=== PATIENT | male | born 1935 ===

== ENCOUNTER 2022-01-20 08:58 | Inpatient (IN) ==
[2022-01-20] MEDS ORDERED: predniSONE 10 MG TABLET PO SCH (21:00)
[2022-01-21 05:01] LABS: Basophils # 0.1 K/mcL (0.0-0.2); Basophils % 0.7 %; Eosinophils # 0.1 K/mcL (0.0-0.6); Eosinophils % 1.1 %; Hematocrit 42.2 % (37.5-50.1); Hemoglobin 14.3 g/dL (12.9-16.9); Immature Granulocytes % 0.8 % (0-4); Lymphocytes # 2.9 K/mcL (0.6-4.6); Mean Corpuscular HGB Conc 33.9 g/dL (31.6-35.5); Mean Corpuscular Hemoglobin 31.4 pg (28.0-33.3); Mean Corpuscular Volume 92.5 fL (83.0-100.0); Mean Platelet Volume 10.6 fL (9.4-12.4); Monocytes # 1.4 K/mcL (0.0-1.3); Monocytes % 11.3 %; Platelet Count 207 K/mcL (140-400); Red Blood Count 4.56 M/mcL (4.19-5.50); Red Cell Distribution Width 12.7 % (11.5-14.5); Segmented Neutrophils % 63.1 %; White Blood Count 12.7 K/mcL (4.3-11.1)
[2022-01-21 05:18] LABS: BUN/Creatinine Ratio 30 (6-26); Blood Urea Nitrogen 28 mg/dL (8-23); Calcium 8.5 mg/dL (8.6-10.3); Carbon Dioxide 27 mEq/L (23-29); Chloride 107 mEq/L (98-107); Glucose 83 mg/dL (70-105); Osmolality,Calculated 297 (280-300); Potassium 3.6 mEq/L (3.5-5.1); Sodium 141 mEq/L (136-145); eGFR For African Americans > 60 (> 60); eGFR For Non-African Americans > 60 (> 60)
[2022-01-21] MEDS: *HR* Enoxaparin 40 MG/0.4 ML SYRINGE SQ SCH (05:37)
[2022-01-21] MEDS: Budesonide/Formoterol 80/4.5 1 PUFF INH IH SCH ×2 (08:50→21:11)
[2022-01-21] MEDS: lisinopriL 5 MG TABLET PO SCH (08:51)
[2022-01-21] MEDS: carvediloL 6.25 MG TABLET PO SCH (08:51)
[2022-01-21] MEDS: Loratadine/Pseudophed (12 HR) 1 EACH TABLET PO SCH (08:52)
[2022-01-21] MEDS: Isosorbide MONOnitrate (24 HR) 30 MG TAB.ER.24H PO SCH (08:52)
[2022-01-21] MEDS: Aspirin Enteric Coated 81 MG Tablet PO SCH (08:52)
[2022-01-21] MEDS: Cefdinir 300 MG CAPSULE PO SCH ×2 (08:52→19:46)
[2022-01-21] MEDS: Finasteride 5 MG TABLET PO SCH (08:52)
[2022-01-21] MEDS ORDERED: ESOMEPRAZOLE MAGNESIUM 20 MG PO SCH (09:00)
[2022-01-21] MEDS: Melatonin 3 MG TABLET PO SCH (21:38)
[2022-01-22] MEDS: *HR* Enoxaparin 40 MG/0.4 ML SYRINGE SQ SCH (04:56)
[2022-01-22] MEDS: Budesonide/Formoterol 80/4.5 1 PUFF INH IH SCH ×2 (08:16→19:48)
[2022-01-22] MEDS: Finasteride 5 MG TABLET PO SCH (10:44)
[2022-01-22] MEDS: Loratadine/Pseudophed (12 HR) 1 EACH TABLET PO SCH (10:44)
[2022-01-22] MEDS: Aspirin Enteric Coated 81 MG Tablet PO SCH (10:44)
[2022-01-22] MEDS: lisinopriL 5 MG TABLET PO SCH (10:45)
[2022-01-22] MEDS: Cefdinir 300 MG CAPSULE PO SCH ×2 (10:45→20:20)
[2022-01-22] MEDS: carvediloL 6.25 MG TABLET PO SCH (10:48)
[2022-01-22] MEDS: Isosorbide MONOnitrate (24 HR) 30 MG TAB.ER.24H PO SCH (10:48)
[2022-01-22] MEDS: Melatonin 3 MG TABLET PO SCH (20:20)
[2022-01-22] MEDS: Acetaminophen 325 MG TABLET PO PRN (20:20)
[2022-01-23] MEDS: *HR* Enoxaparin 40 MG/0.4 ML SYRINGE SQ SCH (05:44)
[2022-01-23] MEDS: Budesonide/Formoterol 80/4.5 1 PUFF INH IH SCH ×2 (07:43→18:55)
[2022-01-23] MEDS: Finasteride 5 MG TABLET PO SCH (07:44)
[2022-01-23] MEDS: lisinopriL 5 MG TABLET PO SCH (07:45)
[2022-01-23] MEDS: Loratadine/Pseudophed (12 HR) 1 EACH TABLET PO SCH (07:45)
[2022-01-23] MEDS: Aspirin Enteric Coated 81 MG Tablet PO SCH (07:45)
[2022-01-23] MEDS: carvediloL 6.25 MG TABLET PO SCH (07:45)
[2022-01-23] MEDS: Isosorbide MONOnitrate (24 HR) 30 MG TAB.ER.24H PO SCH (07:45)
[2022-01-23] MEDS: Cefdinir 300 MG CAPSULE PO SCH ×2 (07:46→20:02)
[2022-01-23] MEDS: Melatonin 3 MG TABLET PO SCH (20:02)
[2022-01-24 04:54] LABS: Hematocrit 40.9 % (37.5-50.1); Hemoglobin 13.9 g/dL (12.9-16.9); Mean Corpuscular Hemoglobin 31.7 pg (28.0-33.3); Mean Corpuscular Volume 93.4 fL (83.0-100.0); Mean Platelet Volume 10.7 fL (9.4-12.4); Platelet Count 195 K/mcL (140-400); Red Blood Count 4.38 M/mcL (4.19-5.50); Red Cell Distribution Width 12.7 % (11.5-14.5); White Blood Count 10.3 K/mcL (4.3-11.1)
[2022-01-24 05:12] LABS: Alanine Aminotransferase 27 Units/L (7-52); Albumin 3.5 g/dL (3.5-5.7); Albumin/Globulin Ratio 1.8 (1.1-2.2); Alkaline Phosphatase 52 Units/L (34-104); Aspartate Amino Transferase 19 Units/L (13-39); BUN/Creatinine Ratio 39 (6-26); Bilirubin,Total 0.7 mg/dL (0.3-1.0); Blood Urea Nitrogen 29 mg/dL (8-23); Calcium 8.5 mg/dL (8.6-10.3); Carbon Dioxide 27 mEq/L (23-29); Chloride 109 mEq/L (98-107); Globulin 1.9 g/dL (2.4-3.5); Glucose 95 mg/dL (70-105); Magnesium 2.1 mg/dL (1.6-2.6); Osmolality,Calculated 296 (280-300); Potassium 4.3 mEq/L (3.5-5.1); Sodium 140 mEq/L (136-145); Total Protein 5.4 g/dL (6.4-8.9); eGFR For African Americans > 60 (> 60); eGFR For Non-African Americans > 60 (> 60)
[2022-01-24] MEDS: *HR* Enoxaparin 40 MG/0.4 ML SYRINGE SQ SCH (05:54)
[2022-01-24] MEDS: carvediloL 6.25 MG TABLET PO SCH (07:45)
[2022-01-24] MEDS: Isosorbide MONOnitrate (24 HR) 30 MG TAB.ER.24H PO SCH (07:45)
[2022-01-24] MEDS: Loratadine/Pseudophed (12 HR) 1 EACH TABLET PO SCH (07:45)
[2022-01-24] MEDS: Aspirin Enteric Coated 81 MG Tablet PO SCH (07:46)
[2022-01-24] MEDS: Cefdinir 300 MG CAPSULE PO SCH ×2 (07:46→20:08)
[2022-01-24] MEDS: lisinopriL 5 MG TABLET PO SCH (07:46)
[2022-01-24] MEDS: Finasteride 5 MG TABLET PO SCH (07:46)
[2022-01-24] MEDS: Budesonide/Formoterol 80/4.5 1 PUFF INH IH SCH ×2 (11:10→18:49)
[2022-01-24] MEDS: Melatonin 3 MG TABLET PO SCH (20:08)
[2022-01-25] MEDS: *HR* Enoxaparin 40 MG/0.4 ML SYRINGE SQ SCH (05:18)
[2022-01-25] MEDS: Budesonide/Formoterol 80/4.5 1 PUFF INH IH SCH ×2 (08:07→19:53)
[2022-01-25] MEDS: Aspirin Enteric Coated 81 MG Tablet PO SCH (08:36)
[2022-01-25] MEDS: Loratadine/Pseudophed (12 HR) 1 EACH TABLET PO SCH (08:37)
[2022-01-25] MEDS: carvediloL 6.25 MG TABLET PO SCH (08:37)
[2022-01-25] MEDS: Finasteride 5 MG TABLET PO SCH (08:38)
[2022-01-25] MEDS: Isosorbide MONOnitrate (24 HR) 30 MG TAB.ER.24H PO SCH (08:38)
[2022-01-25] MEDS: lisinopriL 5 MG TABLET PO SCH (08:38)
[2022-01-25] MEDS: Melatonin 3 MG TABLET PO SCH (21:56)
[2022-01-26] MEDS: *HR* Enoxaparin 40 MG/0.4 ML SYRINGE SQ SCH (06:22)
[2022-01-26] MEDS: Budesonide/Formoterol 80/4.5 1 PUFF INH IH SCH ×2 (07:32→21:48)
[2022-01-26] MEDS: Loratadine/Pseudophed (12 HR) 1 EACH TABLET PO SCH (08:08)
[2022-01-26] MEDS: Aspirin Enteric Coated 81 MG Tablet PO SCH (08:08)
[2022-01-26] MEDS: carvediloL 6.25 MG TABLET PO SCH (08:09)
[2022-01-26] MEDS: Finasteride 5 MG TABLET PO SCH (08:09)
[2022-01-26] MEDS: Isosorbide MONOnitrate (24 HR) 30 MG TAB.ER.24H PO SCH (08:09)
[2022-01-26] MEDS: lisinopriL 5 MG TABLET PO SCH (08:10)
[2022-01-26] MEDS: polyethylene glycoL 3350 17 GM POWD.PACK PO SCH (13:37)
[2022-01-26] MEDS: Melatonin 3 MG TABLET PO SCH (21:15)
[2022-01-27] MEDS: *HR* Enoxaparin 40 MG/0.4 ML SYRINGE SQ SCH (04:58)
[2022-01-27] MEDS: Budesonide/Formoterol 80/4.5 1 PUFF INH IH SCH ×2 (06:49→20:14)
[2022-01-27] MEDS: Loratadine/Pseudophed (12 HR) 1 EACH TABLET PO SCH (08:05)
[2022-01-27] MEDS: polyethylene glycoL 3350 17 GM POWD.PACK PO SCH (08:05)
[2022-01-27] MEDS: Aspirin Enteric Coated 81 MG Tablet PO SCH (08:05)
[2022-01-27] MEDS: carvediloL 6.25 MG TABLET PO SCH (08:05)
[2022-01-27] MEDS: Isosorbide MONOnitrate (24 HR) 30 MG TAB.ER.24H PO SCH (08:06)
[2022-01-27] MEDS: Finasteride 5 MG TABLET PO SCH (08:06)
[2022-01-27] MEDS: lisinopriL 5 MG TABLET PO SCH (09:29)
[2022-01-27] MEDS: Melatonin 3 MG TABLET PO SCH (21:03)
[2022-01-27] MEDS: Acetaminophen 325 MG TABLET PO PRN (21:03)
[2022-01-28] MEDS: *HR* Enoxaparin 40 MG/0.4 ML SYRINGE SQ SCH (06:05)
[2022-01-28] MEDS: carvediloL 6.25 MG TABLET PO SCH (08:59)
[2022-01-28] MEDS: Finasteride 5 MG TABLET PO SCH (08:59)
[2022-01-28] MEDS: Aspirin Enteric Coated 81 MG Tablet PO SCH (08:59)
[2022-01-28] MEDS: polyethylene glycoL 3350 17 GM POWD.PACK PO SCH (08:59)
[2022-01-28] MEDS: lisinopriL 5 MG TABLET PO SCH (08:59)
[2022-01-28] MEDS: Loratadine/Pseudophed (12 HR) 1 EACH TABLET PO SCH (08:59)
[2022-01-28] MEDS: Isosorbide MONOnitrate (24 HR) 30 MG TAB.ER.24H PO SCH (08:59)
[2022-01-28] MEDS: Budesonide/Formoterol 80/4.5 1 PUFF INH IH SCH ×2 (09:09→18:27)
[2022-01-28] MEDS: Melatonin 3 MG TABLET PO SCH (21:00)
[2022-01-29] MEDS: *HR* Enoxaparin 40 MG/0.4 ML SYRINGE SQ SCH (05:21)
[2022-01-29 05:52] LABS: Hematocrit 39.2 % (37.5-50.1); Hemoglobin 13.2 g/dL (12.9-16.9); Mean Corpuscular HGB Conc 33.7 g/dL (31.6-35.5); Mean Corpuscular Hemoglobin 31.3 pg (28.0-33.3); Mean Corpuscular Volume 92.9 fL (83.0-100.0); Mean Platelet Volume 10.1 fL (9.4-12.4); Platelet Count 217 K/mcL (140-400); Red Blood Count 4.22 M/mcL (4.19-5.50); Red Cell Distribution Width 12.3 % (11.5-14.5); White Blood Count 9.1 K/mcL (4.3-11.1)
[2022-01-29 06:10] LABS: Alanine Aminotransferase 24 Units/L (7-52); Albumin 3.5 g/dL (3.5-5.7); Albumin/Globulin Ratio 2.1 (1.1-2.2); Alkaline Phosphatase 61 Units/L (34-104); Aspartate Amino Transferase 18 Units/L (13-39); BUN/Creatinine Ratio 30 (6-26); Bilirubin,Total 0.8 mg/dL (0.3-1.0); Blood Urea Nitrogen 25 mg/dL (8-23); Calcium 8.7 mg/dL (8.6-10.3); Carbon Dioxide 27 mEq/L (23-29); Chloride 106 mEq/L (98-107); Globulin 1.7 g/dL (2.4-3.5); Glucose 98 mg/dL (70-105); Osmolality,Calculated 292 (280-300); Sodium 139 mEq/L (136-145); Total Protein 5.2 g/dL (6.4-8.9); eGFR For African Americans > 60 (> 60); eGFR For Non-African Americans > 60 (> 60)
[2022-01-29] MEDS: carvediloL 6.25 MG TABLET PO SCH (07:49)
[2022-01-29] MEDS: Isosorbide MONOnitrate (24 HR) 30 MG TAB.ER.24H PO SCH (07:49)
[2022-01-29] MEDS: polyethylene glycoL 3350 17 GM POWD.PACK PO SCH (07:49)
[2022-01-29] MEDS: Aspirin Enteric Coated 81 MG Tablet PO SCH (07:49)
[2022-01-29] MEDS: Finasteride 5 MG TABLET PO SCH (07:49)
[2022-01-29] MEDS: Loratadine/Pseudophed (12 HR) 1 EACH TABLET PO SCH (07:49)
[2022-01-29] MEDS: lisinopriL 5 MG TABLET PO SCH (07:49)
[2022-01-29] MEDS: Budesonide/Formoterol 80/4.5 1 PUFF INH IH SCH ×2 (10:23→20:58)
[2022-01-29] MEDS ORDERED: hydrALAZINE 25 MG TABLET PO ONE ×2 (21:26→23:19)
[2022-01-29] MEDS: Melatonin 3 MG TABLET PO SCH (21:36)
[2022-01-29] MEDS ORDERED: *HR* Labetalol 20 MG/4 ML SYRINGE IVP ONE (23:08)
[2022-01-30] MEDS: *HR* Enoxaparin 40 MG/0.4 ML SYRINGE SQ SCH (06:26)
[2022-01-30] MEDS: Finasteride 5 MG TABLET PO SCH (08:38)
[2022-01-30] MEDS: Loratadine/Pseudophed (12 HR) 1 EACH TABLET PO SCH (08:38)
[2022-01-30] MEDS: Isosorbide MONOnitrate (24 HR) 30 MG TAB.ER.24H PO SCH (08:38)
[2022-01-30] MEDS: Aspirin Enteric Coated 81 MG Tablet PO SCH (08:38)
[2022-01-30] MEDS: carvediloL 6.25 MG TABLET PO SCH (08:39)
[2022-01-30] MEDS: polyethylene glycoL 3350 17 GM POWD.PACK PO SCH (08:39)
[2022-01-30] MEDS ORDERED: lisinopriL 5 MG TABLET PO SCH (09:00)
[2022-01-30] MEDS ORDERED: amLODIPine 5 MG TABLET PO SCH (10:00)
[2022-01-30] MEDS: Budesonide/Formoterol 80/4.5 1 PUFF INH IH SCH ×2 (10:29→20:49)
[2022-01-30] MEDS ORDERED: Neosporin OINT 1 APPL PACKET TP ONE (14:26)
[2022-01-30] MEDS: tiZANidine 4 MG TABLET PO PRN (17:01)
[2022-01-30] MEDS: Acetaminophen 325 MG TABLET PO PRN (20:01)
[2022-01-30] MEDS: Doxycycline 100 MG CAPSULE PO SCH (20:02)
[2022-01-30] MEDS: Melatonin 3 MG TABLET PO SCH (20:02)
[2022-01-31] MEDS: tiZANidine 4 MG TABLET PO PRN ×2 (05:57→18:17)
[2022-01-31] MEDS: *HR* Enoxaparin 40 MG/0.4 ML SYRINGE SQ SCH (05:57)
[2022-01-31] MEDS: hydrALAZINE 10 MG TABLET PO PRN (06:34)
[2022-01-31] MEDS: Budesonide/Formoterol 80/4.5 1 PUFF INH IH SCH ×2 (07:16→19:16)
[2022-01-31] MEDS: carvediloL 6.25 MG TABLET PO SCH (09:27)
[2022-01-31] MEDS: Doxycycline 100 MG CAPSULE PO SCH ×2 (09:27→19:58)
[2022-01-31] MEDS: Isosorbide MONOnitrate (24 HR) 30 MG TAB.ER.24H PO SCH (09:27)
[2022-01-31] MEDS: lisinopriL 20 MG TABLET PO SCH (09:28)
[2022-01-31] MEDS: Finasteride 5 MG TABLET PO SCH (09:28)
[2022-01-31] MEDS: Aspirin Enteric Coated 81 MG Tablet PO SCH (09:28)
[2022-01-31] MEDS: Loratadine/Pseudophed (12 HR) 1 EACH TABLET PO SCH (09:28)
[2022-01-31] MEDS: polyethylene glycoL 3350 17 GM POWD.PACK PO SCH (09:29)
[2022-01-31] MEDS: amLODIPine 5 MG TABLET PO SCH (15:41)
[2022-01-31] MEDS: Acetaminophen 325 MG TABLET PO PRN (19:58)
[2022-01-31] MEDS: Melatonin 3 MG TABLET PO SCH (19:58)
[2022-02-01] MEDS: Acetaminophen 325 MG TABLET PO PRN (05:28)
[2022-02-01] MEDS: tiZANidine 4 MG TABLET PO PRN ×3 (05:28→23:45)
[2022-02-01] MEDS: *HR* Enoxaparin 40 MG/0.4 ML SYRINGE SQ SCH (05:28)
[2022-02-01] MEDS: Aspirin Enteric Coated 81 MG Tablet PO SCH (08:24)
[2022-02-01] MEDS: amLODIPine 5 MG TABLET PO SCH (08:24)
[2022-02-01] MEDS: lisinopriL 20 MG TABLET PO SCH (08:24)
[2022-02-01] MEDS: Doxycycline 100 MG CAPSULE PO SCH ×2 (08:25→20:00)
[2022-02-01] MEDS: Finasteride 5 MG TABLET PO SCH (08:25)
[2022-02-01] MEDS: Loratadine/Pseudophed (12 HR) 1 EACH TABLET PO SCH (08:25)
[2022-02-01] MEDS: carvediloL 6.25 MG TABLET PO SCH (08:25)
[2022-02-01] MEDS: Isosorbide MONOnitrate (24 HR) 30 MG TAB.ER.24H PO SCH (08:25)
[2022-02-01] MEDS: polyethylene glycoL 3350 17 GM POWD.PACK PO SCH (08:26)
[2022-02-01] MEDS: Budesonide/Formoterol 80/4.5 1 PUFF INH IH SCH ×2 (10:26→20:02)
[2022-02-01] MEDS: hydrALAZINE 10 MG TABLET PO PRN (16:36)
[2022-02-01] MEDS: Melatonin 3 MG TABLET PO SCH (20:00)
[2022-02-02] MEDS: *HR* Enoxaparin 40 MG/0.4 ML SYRINGE SQ SCH (05:47)
[2022-02-02] MEDS: Loratadine/Pseudophed (12 HR) 1 EACH TABLET PO SCH (08:21)
[2022-02-02] MEDS: Aspirin Enteric Coated 81 MG Tablet PO SCH (08:21)
[2022-02-02] MEDS: lisinopriL 20 MG TABLET PO SCH (08:21)
[2022-02-02] MEDS: Doxycycline 100 MG CAPSULE PO SCH ×2 (08:21→20:59)
[2022-02-02] MEDS: carvediloL 6.25 MG TABLET PO SCH (08:21)
[2022-02-02] MEDS: amLODIPine 5 MG TABLET PO SCH (08:21)
[2022-02-02] MEDS: Finasteride 5 MG TABLET PO SCH (08:22)
[2022-02-02] MEDS: Isosorbide MONOnitrate (24 HR) 30 MG TAB.ER.24H PO SCH (08:22)
[2022-02-02] MEDS: polyethylene glycoL 3350 17 GM POWD.PACK PO SCH (08:53)
[2022-02-02] MEDS: Budesonide/Formoterol 80/4.5 1 PUFF INH IH SCH ×2 (10:32→20:13)
[2022-02-02] MEDS: tiZANidine 4 MG TABLET PO PRN (20:59)
[2022-02-02] MEDS: hydrALAZINE 10 MG TABLET PO PRN (20:59)
[2022-02-02] MEDS: Melatonin 3 MG TABLET PO SCH (20:59)
[2022-02-03] MEDS: Acetaminophen 325 MG TABLET PO PRN ×2 (02:24→20:30)
[2022-02-03 04:59] LABS: Hematocrit 38.3 % (37.5-50.1); Hemoglobin 13.1 g/dL (12.9-16.9); Mean Corpuscular HGB Conc 34.2 g/dL (31.6-35.5); Mean Corpuscular Hemoglobin 31.4 pg (28.0-33.3); Mean Corpuscular Volume 91.8 fL (83.0-100.0); Mean Platelet Volume 10.1 fL (9.4-12.4); Platelet Count 213 K/mcL (140-400); Red Blood Count 4.17 M/mcL (4.19-5.50); Red Cell Distribution Width 12.2 % (11.5-14.5); White Blood Count 9.4 K/mcL (4.3-11.1)
[2022-02-03 05:20] LABS: Alanine Aminotransferase 27 Units/L (7-52); Albumin 3.5 g/dL (3.5-5.7); Albumin/Globulin Ratio 2.2 (1.1-2.2); Alkaline Phosphatase 60 Units/L (34-104); Aspartate Amino Transferase 19 Units/L (13-39); BUN/Creatinine Ratio 26 (6-26); Bilirubin,Total 0.5 mg/dL (0.3-1.0); Blood Urea Nitrogen 18 mg/dL (8-23); Calcium 8.4 mg/dL (8.6-10.3); Carbon Dioxide 26 mEq/L (23-29); Chloride 108 mEq/L (98-107); Globulin 1.6 g/dL (2.4-3.5); Glucose 93 mg/dL (70-105); Magnesium 1.9 mg/dL (1.6-2.6); Osmolality,Calculated 294 (280-300); Potassium 3.7 mEq/L (3.5-5.1); Sodium 141 mEq/L (136-145); Total Protein 5.1 g/dL (6.4-8.9); eGFR For African Americans > 60 (> 60); eGFR For Non-African Americans > 60 (> 60)
[2022-02-03] MEDS: *HR* Enoxaparin 40 MG/0.4 ML SYRINGE SQ SCH (05:42)
[2022-02-03] MEDS: Isosorbide MONOnitrate (24 HR) 30 MG TAB.ER.24H PO SCH (08:37)
[2022-02-03] MEDS: Loratadine/Pseudophed (12 HR) 1 EACH TABLET PO SCH (08:37)
[2022-02-03] MEDS: hydrALAZINE 10 MG TABLET PO PRN (08:37)
[2022-02-03] MEDS: lisinopriL 20 MG TABLET PO SCH (08:37)
[2022-02-03] MEDS: Aspirin Enteric Coated 81 MG Tablet PO SCH (08:38)
[2022-02-03] MEDS: Doxycycline 100 MG CAPSULE PO SCH ×2 (08:38→20:30)
[2022-02-03] MEDS: Finasteride 5 MG TABLET PO SCH (08:38)
[2022-02-03] MEDS: carvediloL 6.25 MG TABLET PO SCH (08:39)
[2022-02-03] MEDS: amLODIPine 5 MG TABLET PO SCH (08:39)
[2022-02-03] MEDS: polyethylene glycoL 3350 17 GM POWD.PACK PO SCH (08:39)
[2022-02-03] MEDS: Budesonide/Formoterol 80/4.5 1 PUFF INH IH SCH ×2 (10:22→21:42)
[2022-02-03] MEDS: tiZANidine 4 MG TABLET PO PRN (20:30)
[2022-02-03] MEDS: Melatonin 3 MG TABLET PO SCH (20:30)
[2022-02-04] MEDS ORDERED: Gabapentin 300 MG CAPSULE PO ONE (04:03)
[2022-02-04] MEDS: *HR* Enoxaparin 40 MG/0.4 ML SYRINGE SQ SCH (04:16)
[2022-02-04] MEDS: carvediloL 6.25 MG TABLET PO SCH (08:36)
[2022-02-04] MEDS: Aspirin Enteric Coated 81 MG Tablet PO SCH (08:37)
[2022-02-04] MEDS: Loratadine/Pseudophed (12 HR) 1 EACH TABLET PO SCH (08:37)
[2022-02-04] MEDS: amLODIPine 5 MG TABLET PO SCH (08:37)
[2022-02-04] MEDS: Doxycycline 100 MG CAPSULE PO SCH ×2 (08:37→19:51)
[2022-02-04] MEDS: Isosorbide MONOnitrate (24 HR) 30 MG TAB.ER.24H PO SCH (08:38)
[2022-02-04] MEDS: lisinopriL 20 MG TABLET PO SCH (08:38)
[2022-02-04] MEDS: Finasteride 5 MG TABLET PO SCH (08:38)
[2022-02-04] MEDS: polyethylene glycoL 3350 17 GM POWD.PACK PO SCH ×2 (08:38→09:00)
[2022-02-04] MEDS: Budesonide/Formoterol 80/4.5 1 PUFF INH IH SCH ×2 (09:33→21:29)
[2022-02-04] MEDS: hydrALAZINE 10 MG TABLET PO PRN (19:51)
[2022-02-04] MEDS: Melatonin 3 MG TABLET PO SCH (19:51)
[2022-02-05] MEDS: tiZANidine 4 MG TABLET PO PRN ×2 (02:27→19:57)
[2022-02-05] MEDS: *HR* Enoxaparin 40 MG/0.4 ML SYRINGE SQ SCH (05:50)
[2022-02-05] MEDS: Budesonide/Formoterol 80/4.5 1 PUFF INH IH SCH ×2 (07:21→20:44)
[2022-02-05] MEDS: Aspirin Enteric Coated 81 MG Tablet PO SCH (08:37)
[2022-02-05] MEDS: Isosorbide MONOnitrate (24 HR) 30 MG TAB.ER.24H PO SCH (08:37)
[2022-02-05] MEDS: Doxycycline 100 MG CAPSULE PO SCH ×2 (08:37→19:55)
[2022-02-05] MEDS: lisinopriL 20 MG TABLET PO SCH (08:37)
[2022-02-05] MEDS: Finasteride 5 MG TABLET PO SCH (08:37)
[2022-02-05] MEDS: Loratadine/Pseudophed (12 HR) 1 EACH TABLET PO SCH (08:37)
[2022-02-05] MEDS: carvediloL 6.25 MG TABLET PO SCH (08:38)
[2022-02-05] MEDS: amLODIPine 5 MG TABLET PO SCH (08:38)
[2022-02-05] MEDS: polyethylene glycoL 3350 17 GM POWD.PACK PO SCH (08:39)
[2022-02-05] MEDS: Melatonin 3 MG TABLET PO SCH (19:55)
[2022-02-06 05:52] LABS: Basophils # 0.1 K/mcL (0.0-0.2); Basophils % 1.2 %; Eosinophils % 8.3 %; Hematocrit 42.3 % (37.5-50.1); Hemoglobin 14.3 g/dL (12.9-16.9); Immature Granulocytes % 0.4 % (0-4); Lymphocytes % 16.6 %; Mean Corpuscular HGB Conc 33.8 g/dL (31.6-35.5); Mean Corpuscular Hemoglobin 31.6 pg (28.0-33.3); Mean Corpuscular Volume 93.6 fL (83.0-100.0); Mean Platelet Volume 10.2 fL (9.4-12.4); Monocytes % 10.5 %; Neutrophils # 7.5 K/mcL (1.6-8.9); Platelet Count 211 K/mcL (140-400); Red Blood Count 4.52 M/mcL (4.19-5.50); Red Cell Distribution Width 12.3 % (11.5-14.5); White Blood Count 11.9 K/mcL (4.3-11.1)
[2022-02-06 05:56] LABS: Monocytes # 1.3 K/mcL (0.0-1.3)
[2022-02-06] MEDS: *HR* Enoxaparin 40 MG/0.4 ML SYRINGE SQ SCH (05:58)
[2022-02-06 06:12] LABS: BUN/Creatinine Ratio 24 (6-26); Blood Urea Nitrogen 20 mg/dL (8-23); Calcium 9.1 mg/dL (8.6-10.3); Carbon Dioxide 31 mEq/L (23-29); Chloride 104 mEq/L (98-107); Glucose 90 mg/dL (70-105); Osmolality,Calculated 294 (280-300); Potassium 3.9 mEq/L (3.5-5.1); Sodium 141 mEq/L (136-145); eGFR For African Americans > 60 (> 60); eGFR For Non-African Americans > 60 (> 60)
[2022-02-06] MEDS: Budesonide/Formoterol 80/4.5 1 PUFF INH IH SCH ×2 (07:23→19:40)
[2022-02-06] MEDS: Isosorbide MONOnitrate (24 HR) 30 MG TAB.ER.24H PO SCH (08:37)
[2022-02-06] MEDS: lisinopriL 20 MG TABLET PO SCH (08:37)
[2022-02-06] MEDS: Doxycycline 100 MG CAPSULE PO SCH ×2 (08:37→20:14)
[2022-02-06] MEDS: Loratadine/Pseudophed (12 HR) 1 EACH TABLET PO SCH (08:37)
[2022-02-06] MEDS: Aspirin Enteric Coated 81 MG Tablet PO SCH (08:38)
[2022-02-06] MEDS: polyethylene glycoL 3350 17 GM POWD.PACK PO SCH (08:38)
[2022-02-06] MEDS: carvediloL 6.25 MG TABLET PO SCH (08:38)
[2022-02-06] MEDS: amLODIPine 5 MG TABLET PO SCH (08:38)
[2022-02-06] MEDS: Finasteride 5 MG TABLET PO SCH (08:38)
[2022-02-06] MEDS ORDERED: amLODIPine 5 MG TABLET PO ONE (09:50)
[2022-02-06] MEDS: hydrALAZINE 10 MG TABLET PO PRN (20:14)
[2022-02-06] MEDS: Melatonin 3 MG TABLET PO SCH (20:14)
[2022-02-06] MEDS: tiZANidine 4 MG TABLET PO PRN (23:26)
[2022-02-07] MEDS: *HR* Enoxaparin 40 MG/0.4 ML SYRINGE SQ SCH (05:28)
[2022-02-07] MEDS: lisinopriL 20 MG TABLET PO SCH (08:02)
[2022-02-07] MEDS: Loratadine/Pseudophed (12 HR) 1 EACH TABLET PO SCH (08:02)
[2022-02-07] MEDS: Aspirin Enteric Coated 81 MG Tablet PO SCH (08:03)
[2022-02-07] MEDS: Finasteride 5 MG TABLET PO SCH (08:03)
[2022-02-07] MEDS: Isosorbide MONOnitrate (24 HR) 30 MG TAB.ER.24H PO SCH (08:03)
[2022-02-07] MEDS: carvediloL 6.25 MG TABLET PO SCH (08:03)
[2022-02-07] MEDS: polyethylene glycoL 3350 17 GM POWD.PACK PO SCH (08:04)
[2022-02-07] MEDS: amLODIPine 5 MG TABLET PO SCH (08:05)
[2022-02-07] MEDS: Budesonide/Formoterol 80/4.5 1 PUFF INH IH SCH ×2 (10:24→19:29)
[2022-02-07] MEDS: hydrALAZINE 10 MG TABLET PO PRN (20:45)
[2022-02-07] MEDS: Melatonin 3 MG TABLET PO SCH (20:45)
[2022-02-08] MEDS: *HR* Enoxaparin 40 MG/0.4 ML SYRINGE SQ SCH (05:34)
[2022-02-08] MEDS: hydrALAZINE 10 MG TABLET PO PRN ×2 (06:04→19:27)
[2022-02-08] MEDS: Budesonide/Formoterol 80/4.5 1 PUFF INH IH SCH ×2 (07:10→21:47)
[2022-02-08] MEDS: Aspirin Enteric Coated 81 MG Tablet PO SCH (07:55)
[2022-02-08] MEDS: Loratadine/Pseudophed (12 HR) 1 EACH TABLET PO SCH (07:55)
[2022-02-08] MEDS: amLODIPine 5 MG TABLET PO SCH (07:55)
[2022-02-08] MEDS: Isosorbide MONOnitrate (24 HR) 30 MG TAB.ER.24H PO SCH (07:55)
[2022-02-08] MEDS: polyethylene glycoL 3350 17 GM POWD.PACK PO SCH (07:55)
[2022-02-08] MEDS: Finasteride 5 MG TABLET PO SCH (07:55)
[2022-02-08] MEDS: tiZANidine 4 MG TABLET PO PRN (07:55)
[2022-02-08] MEDS: carvediloL 6.25 MG TABLET PO SCH (07:56)
[2022-02-08] MEDS: lisinopriL 20 MG TABLET PO SCH (07:56)
[2022-02-08] MEDS: Acetaminophen 325 MG TABLET PO PRN (13:26)
[2022-02-08] MEDS: Melatonin 3 MG TABLET PO SCH (20:55)
[2022-02-09] MEDS: *HR* Enoxaparin 40 MG/0.4 ML SYRINGE SQ SCH (04:46)
[2022-02-09] MEDS: Budesonide/Formoterol 80/4.5 1 PUFF INH IH SCH ×2 (07:24→21:18)
[2022-02-09] MEDS: amLODIPine 5 MG TABLET PO SCH (08:58)
[2022-02-09] MEDS: Aspirin Enteric Coated 81 MG Tablet PO SCH (08:58)
[2022-02-09] MEDS: hydrALAZINE 10 MG TABLET PO PRN (08:58)
[2022-02-09] MEDS: Finasteride 5 MG TABLET PO SCH (08:58)
[2022-02-09] MEDS: Loratadine/Pseudophed (12 HR) 1 EACH TABLET PO SCH (08:58)
[2022-02-09] MEDS: polyethylene glycoL 3350 17 GM POWD.PACK PO SCH (08:59)
[2022-02-09] MEDS: carvediloL 6.25 MG TABLET PO SCH (08:59)
[2022-02-09] MEDS: Isosorbide MONOnitrate (24 HR) 30 MG TAB.ER.24H PO SCH (08:59)
[2022-02-09] MEDS: lisinopriL 20 MG TABLET PO SCH (08:59)
[2022-02-09] MEDS: Melatonin 3 MG TABLET PO SCH (21:13)
[2022-02-09] MEDS: tiZANidine 4 MG TABLET PO PRN (21:13)
[2022-02-10] MEDS: tiZANidine 4 MG TABLET PO PRN ×2 (05:02→23:00)
[2022-02-10] MEDS: *HR* Enoxaparin 40 MG/0.4 ML SYRINGE SQ SCH (05:02)
[2022-02-10] MEDS: Budesonide/Formoterol 80/4.5 1 PUFF INH IH SCH ×2 (07:27→22:41)
[2022-02-10] MEDS: polyethylene glycoL 3350 17 GM POWD.PACK PO SCH (07:57)
[2022-02-10] MEDS: Isosorbide MONOnitrate (24 HR) 30 MG TAB.ER.24H PO SCH (07:57)
[2022-02-10] MEDS: amLODIPine 5 MG TABLET PO SCH (07:57)
[2022-02-10] MEDS: carvediloL 6.25 MG TABLET PO SCH (07:57)
[2022-02-10] MEDS: Loratadine/Pseudophed (12 HR) 1 EACH TABLET PO SCH (07:58)
[2022-02-10] MEDS: Finasteride 5 MG TABLET PO SCH (07:58)
[2022-02-10] MEDS: lisinopriL 20 MG TABLET PO SCH (07:58)
[2022-02-10] MEDS: Aspirin Enteric Coated 81 MG Tablet PO SCH (07:58)
[2022-02-10] MEDS: Melatonin 3 MG TABLET PO SCH (19:37)
[2022-02-10] MEDS: hydrALAZINE 10 MG TABLET PO PRN (19:37)
[2022-02-11 04:44] LABS: Basophils # 0.1 K/mcL (0.0-0.2); Eosinophils # 0.8 K/mcL (0.0-0.6); Eosinophils % 8.8 %; Hematocrit 38.1 % (37.5-50.1); Immature Granulocytes % 0.5 % (0-4); Lymphocytes # 1.9 K/mcL (0.6-4.6); Lymphocytes % 20.9 %; Mean Corpuscular HGB Conc 33.1 g/dL (31.6-35.5); Mean Corpuscular Volume 93.6 fL (83.0-100.0); Mean Platelet Volume 9.9 fL (9.4-12.4); Monocytes # 1.3 K/mcL (0.0-1.3); Monocytes % 14.4 %; Neutrophils # 4.8 K/mcL (1.6-8.9); Platelet Count 191 K/mcL (140-400); Red Blood Count 4.07 M/mcL (4.19-5.50); Segmented Neutrophils % 54.4 %; White Blood Count 8.9 K/mcL (4.3-11.1)
[2022-02-11] MEDS: *HR* Enoxaparin 40 MG/0.4 ML SYRINGE SQ SCH (04:46)
[2022-02-11 04:47] LABS: Hemoglobin 12.6 g/dL (12.9-16.9)
[2022-02-11 05:01] LABS: BUN/Creatinine Ratio 29 (6-26); Blood Urea Nitrogen 20 mg/dL (8-23); Calcium 8.5 mg/dL (8.6-10.3); Carbon Dioxide 29 mEq/L (23-29); Chloride 106 mEq/L (98-107); Glucose 98 mg/dL (70-105); Osmolality,Calculated 293 (280-300); Potassium 3.8 mEq/L (3.5-5.1); Sodium 140 mEq/L (136-145); eGFR For African Americans > 60 (> 60); eGFR For Non-African Americans > 60 (> 60)
[2022-02-11] MEDS: amLODIPine 5 MG TABLET PO SCH (08:18)
[2022-02-11] MEDS: carvediloL 6.25 MG TABLET PO SCH (08:19)
[2022-02-11] MEDS: Loratadine/Pseudophed (12 HR) 1 EACH TABLET PO SCH (08:19)
[2022-02-11] MEDS: Aspirin Enteric Coated 81 MG Tablet PO SCH (08:19)
[2022-02-11] MEDS: lisinopriL 20 MG TABLET PO SCH (08:19)
[2022-02-11] MEDS: Finasteride 5 MG TABLET PO SCH (08:19)
[2022-02-11] MEDS: polyethylene glycoL 3350 17 GM POWD.PACK PO SCH (08:20)
[2022-02-11] MEDS: Isosorbide MONOnitrate (24 HR) 30 MG TAB.ER.24H PO SCH (08:20)
[2022-02-11] MEDS: Budesonide/Formoterol 80/4.5 1 PUFF INH IH SCH ×2 (10:17→22:19)
[2022-02-11] MEDS: Melatonin 3 MG TABLET PO SCH (21:04)
[2022-02-11] MEDS: hydrALAZINE 10 MG TABLET PO PRN (21:04)
[2022-02-11] MEDS: tiZANidine 4 MG TABLET PO PRN (22:14)
[2022-02-12] MEDS: *HR* Enoxaparin 40 MG/0.4 ML SYRINGE SQ SCH (05:14)
[2022-02-12] MEDS: Loratadine/Pseudophed (12 HR) 1 EACH TABLET PO SCH (08:34)
[2022-02-12] MEDS: Aspirin Enteric Coated 81 MG Tablet PO SCH (08:34)
[2022-02-12] MEDS: amLODIPine 5 MG TABLET PO SCH (08:34)
[2022-02-12] MEDS: lisinopriL 20 MG TABLET PO SCH (08:34)
[2022-02-12] MEDS: Isosorbide MONOnitrate (24 HR) 30 MG TAB.ER.24H PO SCH (08:35)
[2022-02-12] MEDS: Finasteride 5 MG TABLET PO SCH (08:35)
[2022-02-12] MEDS: carvediloL 6.25 MG TABLET PO SCH (08:35)
[2022-02-12] MEDS: polyethylene glycoL 3350 17 GM POWD.PACK PO SCH (09:15)
[2022-02-12] MEDS: Budesonide/Formoterol 80/4.5 1 PUFF INH IH SCH ×2 (10:36→20:10)
[2022-02-12 10:45] LABS: Bilirubin,Urine Negative (Negative); Blood,Urine Trace-intact (Negative); Clarity,Urine Clear (Clear); Color,Urine Yellow (Yellow); Glucose,Urine (UA) Normal (Normal); Ketones,Urine Negative (Negative); Leukocyte Esterase,Urine Negative (Negative); Nitrite,Urine Negative (Negative); Protein,Urine Negative (Neg-Trace); Specific Gravity,Urine 1.025 (1.010-1.025); Urobilinogen,Urine Normal (Normal)
[2022-02-12 10:54] LABS: RBC,Urine 0-3 per hpf (0-3); Squamous Epithelial Cell,Urine Few per hpf (None-Few); WBC,Urine 0-3 per hpf (0-3)
[2022-02-12 10:55] LABS: Mucus,Urine Few per lpf (None-Few)
[2022-02-12] MEDS: hydrALAZINE 10 MG TABLET PO PRN (20:02)
[2022-02-12] MEDS: Melatonin 3 MG TABLET PO SCH (20:02)
[2022-02-12] MEDS: tiZANidine 4 MG TABLET PO PRN (20:04)
[2022-02-13] MEDS ORDERED: Melatonin 3 MG TABLET PO ONE (01:15)
[2022-02-13] MEDS: Acetaminophen 325 MG TABLET PO PRN (01:34)
[2022-02-13] MEDS: tiZANidine 4 MG TABLET PO PRN (05:42)
[2022-02-13] MEDS: *HR* Enoxaparin 40 MG/0.4 ML SYRINGE SQ SCH (05:42)
[2022-02-13] MEDS: Aspirin Enteric Coated 81 MG Tablet PO SCH (08:13)
[2022-02-13] MEDS: Loratadine/Pseudophed (12 HR) 1 EACH TABLET PO SCH (08:13)
[2022-02-13] MEDS: Finasteride 5 MG TABLET PO SCH (08:14)
[2022-02-13] MEDS: polyethylene glycoL 3350 17 GM POWD.PACK PO SCH (08:14)
[2022-02-13] MEDS: amLODIPine 5 MG TABLET PO SCH (08:14)
[2022-02-13] MEDS: lisinopriL 20 MG TABLET PO SCH (08:14)
[2022-02-13] MEDS: Isosorbide MONOnitrate (24 HR) 30 MG TAB.ER.24H PO SCH (08:15)
[2022-02-13] MEDS: carvediloL 6.25 MG TABLET PO SCH (08:15)
[2022-02-13] MEDS: Budesonide/Formoterol 80/4.5 1 PUFF INH IH SCH ×2 (10:30→20:06)
[2022-02-13] MEDS: Melatonin 3 MG TABLET PO SCH (19:56)
[2022-02-14] MEDS: tiZANidine 4 MG TABLET PO PRN (01:08)
[2022-02-14] MEDS: *HR* Enoxaparin 40 MG/0.4 ML SYRINGE SQ SCH (06:16)
[2022-02-14] MEDS: Budesonide/Formoterol 80/4.5 1 PUFF INH IH SCH (07:00)
[2022-02-14 07:01] VITALS: RESP 15; O2SAT 97
[2022-02-14 07:16] VITALS: BP 166/74; PULSE 62; TEMP 98.1
[2022-02-14] MEDS: amLODIPine 5 MG TABLET PO SCH (08:21)
[2022-02-14] MEDS: Isosorbide MONOnitrate (24 HR) 30 MG TAB.ER.24H PO SCH (08:21)
[2022-02-14] MEDS: lisinopriL 20 MG TABLET PO SCH (08:21)
[2022-02-14] MEDS: Loratadine/Pseudophed (12 HR) 1 EACH TABLET PO SCH (08:21)
[2022-02-14] MEDS: Aspirin Enteric Coated 81 MG Tablet PO SCH (08:22)
[2022-02-14] MEDS: carvediloL 6.25 MG TABLET PO SCH (08:22)
[2022-02-14] MEDS: polyethylene glycoL 3350 17 GM POWD.PACK PO SCH (08:22)
[2022-02-14] MEDS: Finasteride 5 MG TABLET PO SCH (08:22)
== END 2022-02-14 17:14 | disposition home health service (06) | DRG 57 ==
LOC: INPGRE 15:31
PROVIDERS: ADMIT Family Medicine; ATTEND Family Medicine